=== PATIENT | female | born 1985 | race Caucasian/White ===

== ENCOUNTER 2025-03-10 13:59 | Outpatient (REF) | payer MEDICAID, SELFPAY ==
--- NOTE | ~2025-03-10 | XR_ITS ---
EXAMINATION: XR CHEST 2 VIEWS HISTORY: ACUTE COUGH COMPARISON: There are no prior studies available for comparison. FINDINGS: PA and lateral views of the chest are submitted. The lungs are expanded and clear. There is no pleural effusion, pneumothorax, or pulmonary vascular congestion. The heart is normal in size. The bones are intact. XR/XR chest 2V IMPRESSION: Normal examination of the chest. Electronically signed by: Toni Hernandez MD 03/10/2025 02:56 PM [facility]
--- OUTSIDE RECORDS SUMMARY | 2025-03-10 17:51 | XMS_ITS | Patient Health Record ---
Author Organization [facility] Address [address] [place] [address] Care Team Providers Care Software Project Lead Name Role Phone Boaz Eric Unavailable [phone] Allergies Allergen (clinical drug ingredient) Drug/Non Drug Allergy documented on EMR Reaction Allergy Type Onset Date Status cefaclor Cefaclor hives Drug Allergy Active Reason For Referral No Information Medications Medication SIG (Take, Route, Frequency, Duration) Notes Start Date End Date Status Symbicort 160-4.5 MCG/ACT 2 puffs Inhala tion Twice a day; Duration: 30 days 02/24/2019 Active Immunizations Vaccine Route Administration Date Status Comme nts PPD SC Subcutaneous 05/13/2019 Administered Tdap IM Intramuscular 05/08/2019 Administered Social History Tobacco Use: Social History Observation Description Date Details (start date - stop date) Former Smoker NA - NA Alcohol Screen Question Answer Notes Did you have a drink contain ing alcohol in the past year? Yes How often did you have a dri nk containing alcohol in the past year? Monthly or less (1 point) Points 1 Interpretation Negative Tobacco Use/Smoking Question Answer Notes Patient is a: former smoker Problems Problem Type SNOMED Code ICD Code Onset Dates Problem Status W/U Status Risk Notes Problem Vitamin D deficiency (03965394) Vitamin D deficiency (E55.9) Active confirmed Problem Exposure (311283037) Exposure (T75.89XA) Active confirmed Problem History of anemia (747319958) History of anemia (Z86.2) Active confirmed Problem Encounter for symptom (533454623) Encounter for screening for other disorder (Z13.89) Active confirmed Plan Of Treatment Pending Test Test Name Order Date CTA ANGIO CHEST 05/08/2019 Future Test Test Name Order Date CMP/HEPATIC([facility]) 10/25/2018 Lipid Profile ([facility]) 10/25/2018 URIC ACID([facility]) 10/25/2018 Thyroid Tests 2([facility]) (Include TT4 , T3 uptake, Total T3, TSH, FTI) 10/25/2018 ESR/Sed Rate ([facility]) 10/25/2018 KEVIN IFA SCREEN W/REFL TO TITER AND BERNIE RN, IFA 10/25/2018 Rheumatoid Factor ([facility]) 9 CBC with Differential (AUTO) 10/25/2018 Hepatitis Panel ([facility]) 02/24/2019 Exercise Stress Test 05/08/2019 CMP/HEPATIC([facility]) 06/26/2019 Lipid Profile ([facility]) 06/26/2019 Thyroid Tests 2([facility]) (Include TT4 , T3 uptake, Total T3, TSH, FTI) 06/26/2019 ESR/Sed Rate ([facility]) 06/26/2019 CBC with Differential (AUTO) 06/26/2019 [place] ([facility] Waived only) ([facility]) CBC with Differential (AUTO) 01/06/2020 CMP/HEPATIC([facility]) 11/01/2021 Lipid Profile ([facility]) 11/01/2021 Thyroid Tests 2([facility]) (Include TT4 , T3 uptake, Total T3, TSH, FTI) 11/01/2021 Vitamin D, 25 Hydroxy([facility]) 2021 Urinalysis Dipstick w/ Reflex to Micro a nd Culture ([facility]) 11/01/2021 ESR/Sed Rate ([facility]) 11/01/2021 Hepatitis Panel ([facility]) 11/01/2021 CBC with Differential (AUTO) 11/01/2021 Insurance Providers Payer Name Payer Address Payer Phone Subscriber Number Group Number Insured Name Patient Relationship to Insured Coverage Start Date Coverage End Date Medicaid [address] [place] [address] [phone] [id number] Geraldine Sanders Self - patient is the insured [facility] [address] [address] [place], [place] [id number] [phone] [id number] Geraldine Medrano Self - patient is the insured 8 [facility] Student Plan PPO [address] [place] [address] [phone] [id number] Geraldine Medrano Self - patient is the insured 9 Medical (General) History Medical History History ICD Code Asthma, unspecified, unspecified status 493.90 Anemia 285.9 Migraine headache 346.90 Surgical History Surgery Date(Month/Year)
--- OUTSIDE RECORDS SUMMARY | 2025-03-10 17:51 | XMS_ITS | Clinical Summary ---
Author Organization [facility] Address [address] [place] [address] Phone Care Team Providers Care Nuclear Cardiology Technologist Name Role Phone Rajat Edge MD Primary Care Provider Rajat Edge MD Unavailable Allergies Active Allergy Reactions Criticality Noted Date Comments Cefaclor Hives,Itching,Swelling 08/01/2024 Medications buPROPion (WELLBUTRIN SR) 200 MG SR 12 hr tablet Take 1 tablet by mouth 2 (two) times a day. 06/28/2024 Active DULoxetine (CYMBALTA) 30 MG capsule Take 1 capsule by mouth every morning. 07/23/2024 Active lamoTRIgine (LAMICTAL) 100 MG IMMEDIATE release tablet Take 1 tablet by mouth 2 (two) times a day. 07/23/2024 Active LORazepam (ATIVAN) 0.5 MG tablet Take 0.5 mg by mouth nightly at bedtime as needed. 06/25/2024 Active norethindrone (AYGESTIN) 5 mg tablet Take 5 mg by mouth daily. 05/29/2024 Active zolpidem (AMBIEN) 5 MG tablet Take 5 mg by mouth nightly at bedtime as needed. 06/25/2024 Active Active Problems Problem Noted Date Diagnosed Date Physical exam 01/23/2025 Assessment & Plan (01/23/2025 2:49 PM EST): Patient comes for a establish care and physical exam. She is new to me and new to the office. Aside from this were also assessing her for cough Signs and Symptoms of COVID-19 (e.g., fever, dry cough, and/or SOB), no diagnosis made (assign the appropriate code(s)): In question pneumonia. She continues use of marijuana smoke and we have advised her particularly with her cold symptoms to switch over to edibles. She is new to me but we will see her back in 1 years time for repeat physical and we will do a little bit more social history. At the time of the visit it felt like she had already been seen here in the office. She was having some issues with calluses and I have asked her to find out recycler forklift driver truck driver that is taken by her insurance and we could set up the referral. This could be [facility] for example or a recycler forklift driver truck driver in [place]. The patient was requesting a dermatology consult, again I have asked her to research her insurance to see which music researcher in the area take her insurance and we can then put in the referral also once we know the reason for be the skin screen. Will set the patient up for a Pap smear with [place] [facility]. Acute cough 01/23/2025 Assessment & Plan (01/23/2025 2:50 PM EST): The cold symptoms could be now resolving regarding the infection, I do not see any evidence of pneumonia that would prompt me to write an antibiotic. Irritants to the lungs marijuana smoking for example should be curtailed. Will obtain a chest x- ray of the lungs to determine if there is any small infiltrates. Robitussin with DM recommended to reduce cough. Encounter for well woman mikhail villagomez with routine gynecological exam 01/23/2025 Encounters Date Type Department Care Team Description 01/23/2025 2:00 PM EST Office Visit [facility] [address] [place] [address] Rajat Edge MD Physical exam (Primary Dx); Need for hepatitis C screening test; Screening for human immunodeficiency virus; Acute cough; Encounter for screening mammogram for malignant neoplasm of breast; Encounter for well woman exam with routine gynecological exam 01/23/2025 Orders Only [facility] [address] [place] [address] ProviderAshleigh MD from Last 3 Months Immunizations No known immunizations Social History Tobacco Use Types Packs/Day Years Used Date Smoking Tobacco: Never Smokeless Tobacco: Never Tobacco Cessation:Counseling Given: Not Answered Alcohol Use Standard Drinks/Week Comments Yes 0 (1 standard drink = 0.6 oz pur e alcohol) Child or Family Care Answer Date Record ed Do you have problems with on e of the following making it difficult for you to work, study, or receive health care? No 01/22/2025 Education Answer Date Recorded Are you interested in help w ith more adult education (for example, completing high school, GED, job training, learning the [place] language, technical skills, or developing parenting skills)? No 01/22/2025 Are you concerned about learning? Not on file 01/22/2025 No 01/22/2025 Yes 01/22/2025 Food Answer Date Recorded Within the past 6 months we worried whether our food would run out before we got money to buy more. Never True 01/22/2025 Within the past 6 months the food we bought just didn't last and we didn't have enough money to get more. Never True Residential Stability Answer Date Recor ded What is your housing situation today? I have riky alcaraz 01/22/2025 How many times have you move d in the past 12 months? Zero (I did not move) 01/22/2025 Paying for Meds Answer Date Recorded Do you have trouble paying for medicines? No 01/22/2025 Paying Utility Bills Answer Date Record ed Do you have trouble paying your heating or elect ricity bill? No 01/22/2025 Transportation Answer Date Recorded Has the lack of transportati on kept you from medical appointments or from getting medications? No 01/22/2025 Unemployment Answer Date Recorded Are you currently unemployed or working on a part-time or temporary basis, and looking for work? I choose not to answer 01/22/2025 Digital Access Answer Date Recorded No 01/22/2025 Yes 01/22/2025 Do you have reliable internet access at home? Ye s 01/22/2025 Do you have a device (e.g., phone, tablet, computer) with a working camera? Yes 01/22/2025 SNAP & WIC Answer Date Recorded Do you receive benefits from SNAP (the Supplemental Nutrition Assistance Program) or the Food Stamp Program? Yes 01/22/2025 SNAP is a free program, interested in learning m ore? Not on file 01/22/2025 Can we help you enroll in SNAP? Not on file 01/22/2025 Benefits received from WIC? Not on file 01/10 WIC is a free program, interested in learning mo re? Not on file 01/22/2025 Can we help you enroll in WIC? Not on file 1 03/24/2024 Intimate Partner Violence Answer Date R ecorded Denied Basic Needs Not on file 01/22/2025 In the past 12 months have y ou been in a relationship with a person who hurts, threatens, or tries to control you? No 01/22/2025 Worried food would run out Not on file 01/22 In the past 12 months have y ou been in a relationship with a person who hurts, threatens, or tries to control you? No 01/22/2025 Comments No Sex and Gender Information Value Date Recorded Sex Assigned at Female 04/04/2024 7:20 PM EST Legal Sex Female 7:18 PM EST Gender Identity Female 04/04/2024 7:20 PM EST Sexual Orientation Straight 04/04/2024 7: 20 PM EST Last Filed Vital Signs Vital Sign Reading Time Taken Comments Blood Pressure 100/62 01/23/2025 2:05 PM EST Pulse 94 01/23/2025 2:05 PM EST Temperature 36.5 C (97.7 F) 01/23/2025 2:05 PM EST Respiratory Rate 18 01/23/2025 2:05 PM EST Oxygen Saturation 96% 01/23/2025 2:05 PM EST Inhaled Oxygen Concentration - - Weight 67.7 kg (149 lb 3.2 oz) 01/23/2025 2:05 P M EST Height 165.5 cm (5' 5.16 ) 01/23/2025 2:05 PM ES T Body Mass Index 24.71 01/23/2025 2:05 PM EST Plan of Treatment Upcoming Encounters Date Type Department Care Team (Late st Contact Info) Description 01/25/2026 9:30 AM EST Office Visit [facility] [address] [place] [address] Rajat Edge MD [address] [place] [address] [email or web address] Health Maintenance Due Date Last Done Comments Adult Td,Tdap Booster 1984 PAP SMEAR 2005 INFLUENZA VACCINE (#1) 2024 COVID-19 VACCINE ( - 2024-2 6 season) 2024 DEPRESSION SCREENING 01/22/2026 01/22/2025 MAMMOGRAM 01/23/2027 01/23/2025 HEPATITIS C SCREENING Completed 01/23/2025 HIV ONE-TIME SCREENING (18-6 5 YEARS) Completed 01/23/2025 SMOKING STATUS SCREENING (On ce After 26 Yrs) Completed 01/23/2025 HEPATITIS A VACCINES Aged Out No long er eligible based on patient's age to complete this topic HIB VACCINES Aged Out No longer eligi ble based on patient's age to complete this topic MENINGOCOCCAL VACCINES (ACWY) Aged Out No longer eligible based on patient's age to complete this topic MENINGOCOCCAL VACCINES (B) Aged Out N o longer eligible based on patient's age to complete this topic PNEUMOCOCCAL VACCINES (0-49 years) Aged Out No longer eligible based on patient's age to complete this topic Medical Devices Not on file Procedures Procedure Name Priority Date/Time Associated Diagnosis Comments LIPID PANEL Routine 01/23/2025 2:57 PM EST Physical exam CBC Routine 01/23/2025 2:57 PM EST Acute cough Physical exam COMPREHENSIVE METABOLIC PANEL (CMP) Routine 01/23/2025 2:57 PM EST Physical exam HIV-1/2 ANTIGEN/ANTIBODY Routine 01/23/2025 2:57 PM EST Screening for human immunodeficiency virus HEPATITIS C ANTIBODY, QUALITATIVE Routine 01/23/2025 2:57 PM EST Need for hepatitis C screening test XR CHEST Routine 01/23/2025 2:37 PM EST Acute cough BI MAMMOGRAM SCREENING (BILATERAL) Routine 01/23/2025 2:37 PM EST Encounter for screening mammogram for malignant neoplasm of breast from Last 3 Months Results * Comprehensive Metabolic Panel (CMP) (01/23/2025 2:57 PM EST) Sodium 139 136 - 145 mmol/L 01/23/2025 9:36 PM [facility] Potassium 4.7 3.4 - 5.1 mmol/L 01/23/2025 9:36 PM [facility] Chloride 104 98 - 107 mmol/L 01/23/2025 9:36 PM [facility] CO2 23 20 - 31 mmol/L 01/23/2025 9:36 PM [facility] Anion Gap 12 3 - 17 mmol/L 01/23/2025 9:36 PM [facility] BUN 9 6 - 23 mg/dL 01/23/2025 9:36 PM [facility] Creatinine 0.80 0.50 - 1.00 mg/dL 01/23/2025 9:36 PM [facility] eGFR 95 >59 mL/min/1.7 3m2 01/23/2025 9:36 PM [facility] Comment:Estimated glomerular filtration rate calculated using the CKD-EPI refit equation. Glucose 99 70 - 99 mg/dL 01/23/2025 9:36 PM [facility] Calcium 9.7 8.5 - 10.5 mg/dL 01/23/2025 9:36 PM [facility] AST 21 <33 U/L 01/23/2025 9:36 PM [facility] ALT 16 <34 U/L 01/23/2025 9:36 PM [facility] Alkaline Phosphatase 67 40 - 130 U/L 01/23/2025 9:36 PM [facility] Bilirubin, Total <0.2 0.0 - 1.2 mg/dL 01/23/2025 9:36 PM [facility] Total Protein 7.8 6.4 - 8.3 g/dL 01/23/2025 9:36 PM [facility] Albumin 4.5 3.5 - 5.2 g/dL 01/23/2025 9:36 PM [facility] Globulin 3.3 1.9 - 4.1 g/dL 01/23/2025 9:36 PM [facility] Blood (Blood) Venipuncture / Unknown 01/23/2025 2:57 PM EST 01/23/2025 2:58 PM EST Rajat Edge MD LAB BLOOD BKR ORDERABLES Final R esult Performing Organization Address [facility] Co de Phone Number [address] [address] * HIV-1/2 Antigen/Antibody Screen (01/23/2025 2:57 PM EST) Pathologist [facility] HIV 1/2 Antibody/Antigen Non-React haley Non-React haley 01/23/2025 9:53 PM EST [facility] Comment:A non-reactive or ne gative result does not rule out HIV infection, especially in the setting of acute or early infection. Patient should have HIV RNA testing performed and repeat HIV testing in 4-8 weeks, based on patient's clinical and epidemiologic exposure history. Blood (Blood) Venipuncture / Unknown 01/23/2025 2:57 PM EST 01/23/2025 2:58 PM EST [facility] - 01/23/2025 9:53 PM EST Test performed by 4th generation Tania electrochemiluminescent immunoassay (ECLIA), which detects HIV-1 p24 antigen and antibodies to HIV-1/HIV-2. Antiretroviral drugs taken for treatment or prophylaxis may limit the ability of diagnostic tests to detect HIV infection. Rajat Edge MD LAB BLOOD BKR ORDERABLES Final R esult Performing Organization Address [facility] Co de Phone Number [address] [address] * Hepatitis C Antibody (01/23/2025 2:57 PM EST) Pathologist [facility] Hepatitis C Antibody Non-Reacti ve Non-Reacti ve 01/23/2025 11:48 PM EST [facility] Blood (Blood) Venipuncture / Unknown 01/23/2025 2:57 PM EST 01/23/2025 2:58 PM EST [facility] - 01/23/2025 11:48 PM EST Test performed by Tania electrochemiluminescent immunoassay (ECLIA). us Rajat Edge MD LAB BLOOD BKR ORDERABLES Final R esult [facility] [address] [place] [address] * (ABNORMAL) CBC (01/23/2025 2:57 PM EST) Pathologist [facility] WBC 9.02 4.00 - 11.00 K/uL 01/23/2025 8:56 PM [facility] RBC 4.35 4.00 - 5.20 M/uL 01/23/2025 8:56 PM [facility] Hemoglobin 14.0 12.0 - 16.0 g/dL 01/23/2025 8:56 PM [facility] Hematocrit 42.0 36.0 - 46.0 % 01/23/2025 8:56 PM [facility] MCV 96.6 80.0 - 100.0 fL 01/23/2025 8:56 PM [facility] MCH 32.2(H) 27.0 - 31.0 pg 01/23/2025 8:56 PM [facility] MCHC 33.3 32.0 - 36.0 g/dL 01/23/2025 8:56 PM [facility] PLT 359 150 - 450 K/uL 01/23/2025 8:56 PM [facility] MPV 9.1 8.4 - 12.0 fL 01/23/2025 8:56 PM [facility] RDW-CV 14.0 11.5 - 14.5 % 01/23/2025 8:56 PM [facility] Absolute NRBC 0.00 <=0.00 K cells/uL 01/23/2025 8:56 PM [facility] NRBC 0.0 <=0.0 /100 WBCs 01/23/2025 8:56 PM [facility] Blood (Blood) Venipuncture / Unknown 01/23/2025 2:57 PM EST 01/23/2025 2:58 PM EST Rajat Edge MD LAB BLOOD BKR ORDERABLES Final R esult Performing Organization Address City/[facility]/ZIP Co de Phone Number [address] [address] * (ABNORMAL) Lipid Panel (01/23/2025 2:57 PM EST) Cholesterol 184 <200 mg/dL 01/23/2025 9:36 PM [facility] HDL 37(L) >=40 mg/dL 01/23/2025 9:36 PM [facility] Calculated LDL 133(H) <130 mg/dL 01/23/2025 9:36 PM [facility] Comment:LDL is calculated us ing the Lopez-NIH equation (SRUTHI Cardiol. 2019July 10;5(5):540-548). Non-HDL Cholesterol 147 mg/dL 01/23/2025 9:36 PM [facility] Comment:Guidelines suggest a non-HDL cholesterol goal 30 mg/dL higher than the patient-specific LDL cholesterol goal. Cardiac Risk Ratio 5.0 0.0 - 5.0 2024 9:36 PM [facility] Triglycerides 76 <=150 mg/dL 01/23/2025 9:36 PM [facility] Blood (Blood) Venipuncture / Unknown 01/23/2025 2:57 PM EST 01/23/2025 2:58 PM EST Rajat Edge MD LAB BLOOD BKR ORDERABLES Final R esult [address] [address] from Last 3 Months Insurance [facility] ACO Member Subscriber Plan / Payer (Ef fective 2024-) Name:Medrano Geraldine Marco Relation to Subscriber:Self Name:Geraldine Medrano Payer ID:[id number] (NAIC) Group ID:Not on file Type:Medicaid Address: [employer] CLAIMS [address] CECILY DOUGHERTY MD [facility] [place] [address] [address] [place] [address] ACO Care Teams Nuclear Cardiology Technologist Relationship Specialty Start Date End Date Rajat Edge MD [address] [place] [address] PCP - General 07/21/24 Rajat Edge MD [address] [place] [address] [email or web address] Insurance Assigned Provider 01/24/25 Additional Source Comments The information contained in this document represents components of the legal health record. It is not the complete legal health record.[facility]
== END 2025-03-10 14:00 | disposition home or self-care (01) ==
LOC: HO.XRAY 13:59
PROVIDERS: PCP Internal Medicine; Visit Provider Internal Medicine
DX: R05.1 Acute cough (principal)
CPT/HCPCS: 71046

== ENCOUNTER → 2025-03-10 14:07 | Outpatient (BNV) | payer MEDICAID, SELFPAY | PROVIDERS: PCP Internal Medicine; Visit Provider Radiology Diagnostic Radiology | DX: R05.1 Acute cough (principal) | CPT/HCPCS: 71046 ==